=== PATIENT | male | born 1935 | race Caucasian/White ===

== ENCOUNTER → 2017-02-28 | Emergency (ER) | payer MEDICARE ==
[~2017-02-28] VITALS: Ht 182.9 cm; Wt 83.5 kg
[~2017-02-28] MED LIST: ASPIRIN325 MG PO; BUPROPION XL150 MG PO; BUSPIRONE HCL10 MG PO; CORDARONE200 MG PO; COUMADIN5 MG PO; COUMADIN7.5 MG PO; DILTIAZEM ER180 M2 PO; DILTIAZEM ER240 MG PO; I-CAPS WITH LU1 EACH PO; LEVAQUIN500 MG PO; LEVOTHYROXINE50 MCG PO; LISINOPRIL10 MG PO; LOVENOX80 MG SUB-Q; NITROSTAT0.4 MG SL; OMEPRAZOLE20 MG PO; OXYCODON-ACETA1 EAC2 PO; PRAVASTATIN SOD40 MG PO; RITALIN20 MG PO; RITALIN5 MG PO; TAMSULOSIN HCL0.4 MG PO; TRAZODONE HCL100 MG PO; VITAMIN D1000 UNIT PO; VITAMIN D5000 UNIT PO; WARFARIN SODIUM4 MG PO; WARFARIN SODIUM5 MG PO; ZOFRAN ODT4 MG PO
--- NOTE | 2017-02-28 22:05 | EKG ---
[facility] [address] [facility] [place] [address] Signed Sinus rhythm with premature supraventricular complexes Abnormal QRS-T angle, consider primary T wave abnormality Abnormal ECG When compared with ECG of 01-APR-2016 06:46, premature supraventricular complexes are now present Confirmed by JAMES BYERS MD ([id number]) on 02/28/2017 10:05:39 PM Electronically Signed By: JAMES BYERS MD 02/28/17 2205 PATIENT NAME: HAL DOCKERY Electrocardiogram DATE OF : 31 PHYSICIAN: JAMES BYERS MD REPORT #: [id number] REPORT IS CONFIDENTIAL AND NOT TO BE RELEASED WITHOUT AUTHORIZATION
== END ==
LOC: ED 10:57
DX: E86.0 Dehydration (principal); I10 Essential (primary) hypertension; Z87.891 Personal history of nicotine dependence; Z79.899 Other long term (current) drug therapy; Z79.01 Long term (current) use of anticoagulants
CPT/HCPCS: 80053; 84484; 85025; 85610; 93005; 93010; 99284

== ENCOUNTER 2017-09-24 10:43 | Day surgery (SDC) | payer MEDICARE ==
[~2017-09-24] VITALS: Ht 182.9 cm; Wt 81.4 kg
--- NOTE | 2017-09-24 12:55 | NUR ---
09/24/17 1255 Aubrie Donahue 1249 - PT ARRIVED TO PACU. MAINTAINING OWN AIRWAY. RESPONDS TO TOUCH.
[2017-09-29] MEDS ORDERED: LOVENOX40 MG/0.4 SUB-Q (08:36)
--- NOTE | 2017-10-15 09:26 | OR ---
[facility] [address] [place], [place] [address] Signed DATE OF OPERATION: 09/24/2017 SURGEON: Sathya Funes MD PREOPERATIVE DIAGNOSES: 1. "Thickening" of duodenum and antrum. 2. Multiple metastatic lesions of liver. POSTOPERATIVE DIAGNOSIS: No obvious lesion of stomach, duodenum, or esophagus. PROCEDURE: Esophagogastroduodenoscopy with biopsy. ANESTHESIA: Intravenous sedation, fentanyl 100 mcg, Versed 3 mg. INDICATION: This 81-year-old white man is a patient of Dr. Melodie Levi and referred with "thickening" of duodenum noted on CT scan. He had the same thing in 2015 for which upper endoscopy was performed showing no sign of abnormality. 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 He underwent radiation therapy for that. He is admitted at this time to undergo upper endoscopy. A CT scan has shown not only thickening of the duodenum and antrum of the stomach, but also multiple metastatic lesions to the liver. He understands the risks of bleeding, infection, and perforation related to upper endoscopy and wished to proceed. FINDINGS: There is no lesion of the stomach or duodenum to account for metastatic lesion of the liver. Biopsies were taken nevertheless. DESCRIPTION OF PROCEDURE: The patient was brought to the endoscopy suite and placed in lateral decubitus position, given intravenous sedation to the point of slurred speech and nystagmus. He had undergone topical Hurricaine spray hypopharyngeal anesthesia. The Olympus video upper endoscope was passed in the hypopharynx. The vocal cords appeared normal grossly as did the hypopharynx. The scope was advanced into the esophagus without problem throughout its length and it was normal. The scope was passed in the stomach, which was insufflated with air. Rugal folds appeared normal. There was no particular thickening of the stomach or antrum that could be seen. The pylorus was normal. Scope was passed Electronically Signed By: SATHYA FUNES MD 10/15/17 0926 PATIENT NAME: HAL DOCKERY OPERATIVE REPORT DATE OF : 31 REPORT #: [id number] PHYSICIAN: SATHYA FUNES MD PCP: MELODIE LEVI MD REPORT IS CONFIDENTIAL AND NOT TO BE RELEASED WITHOUT AUTHORIZATION [facility] [address] [place], [place] [address] Signed through into the duodenum, which was normal. Biopsies were taken nevertheless. The scope was then withdrawn. A biopsy was then taken of the antrum for both JOVANI and pathologic testing. One area of deep biopsies in the antrum, which was taken to assess for submucosal lymphoma did show some oozing for which hemoclips were applied. Retroflexed view of the GE junction showed a reasonably intact flap valve. The scope was withdrawn to the distal esophagus and normal mucosa of these esophageal mucosa was noted. Carefully, the scope was withdrawn and removed. The patient was taken to the recovery room in good condition. CONCLUDING DIAGNOSIS: No evidence of lesion to account for metastatic lesions to the liver. Consideration might be made for laparoscopic liver biopsy as well as consideration for colonoscopy, as it has been since 2007 that he last had colonoscopy and he was at that time noted to have polyps. Sathya Funes MD JM/MODL /[id number] cc: Melodie Levi MD Copies: MELODIE LEVI MD ~ Electronically Signed By: SATHYA FUNES MD 10/15/17 0926 PATIENT NAME: HAL DOCKERY OPERATIVE REPORT DATE OF : 31 REPORT #: [id number] PHYSICIAN: SATHYA FUNES MD PCP: MELODIE LEVI MD REPORT IS CONFIDENTIAL AND NOT TO BE RELEASED WITHOUT AUTHORIZATION
== END 2017-09-24 13:50 | disposition home or self-care (01) ==
LOC: DS 10:43 → OPS 10:43 → DS 12:00 → OPS 12:00
PROVIDERS: Surgery
PROC: 0DB68ZX Excision of Stomach, Via Natural or Artificial Opening Endoscopic, Diagnostic (ICD-10-PCS; 2017-09-24)
PROC: 0DB77ZX Excision of Stomach, Pylorus, Via Natural or Artificial Opening, Diagnostic (ICD-10-PCS; 2017-09-24)
PROC: 0DB98ZX Excision of Duodenum, Via Natural or Artificial Opening Endoscopic, Diagnostic (ICD-10-PCS; principal; 2017-09-24 12:00)
DX: R93.3 Abnormal findings on diagnostic imaging of other parts of digestive tract (principal); C78.7 Secondary malignant neoplasm of liver and intrahepatic bile duct; I48.2 Chronic atrial fibrillation; I25.10 Atherosclerotic heart disease of native coronary artery without angina pectoris; I10 Essential (primary) hypertension; E78.5 Hyperlipidemia, unspecified; Z87.891 Personal history of nicotine dependence; Z85.810 Personal history of malignant neoplasm of tongue; Z79.01 Long term (current) use of anticoagulants; Z79.899 Other long term (current) drug therapy
CPT/HCPCS: 88305; 99153; G0500; J0290; J1580; J2250; J3010; J7120

== ENCOUNTER 2017-09-25 11:44 | Day surgery (SDC) | payer MEDICARE ==
[~2017-09-25] VITALS: Ht 182.9 cm; Wt 77.1 kg
--- NOTE | 2017-09-25 15:03 | NUR ---
09/25/17 1503 Kellie Francis 6925 PATIENT ARRIVES TO PACU SLEEPING, RESPONDS TO VERBAL STIMULI BUT EYES ARE STILL CLOSED. PATIENT DENIES PAIN OR NAUSEA. RESP EVEN AND UNLBORED, NC AT 3 LITERS.
[2017-09-29] MEDS ORDERED: LOVENOX40 MG/0.4 SUB-Q (08:36)
--- NOTE | 2017-10-01 14:12 | OR ---
[facility] [address] [place], [place] [address] Signed DATE OF OPERATION: 09/25/2017 SURGEON: Sathya Funes MD PREOPERATIVE DIAGNOSIS: Multiple hepatic metastatic lesions, normal upper endoscopy. POSTOPERATIVE DIAGNOSIS: Three polyps of the colon. No evidence of neoplasm proper. PROCEDURE: Total colonoscopy to cecum with cold morcellation polypectomy x3. ANESTHESIA: Intravenous sedation, fentanyl 150 mcg, Versed 5 mg. INDICATIONS: This 81-year-old white man is a patient of Dr. Levi. He has undergone laparoscopic cholecystectomy in 2016. He has other medical problems including atrial fibrillation. He was previously seen on CT scan to have 2 cysts of the liver as well as thickening of the duodenum and antrum of the stomach. This occurred in 2016. Upper endoscopy did not confirm abnormalities there. He did undergo a laparoscopic cholecystectomy. The liver was normal at that time. He had 2 large hepatic cysts. Recently, he has had symptoms of fatigue, but no hematemesis or blood per rectum. CT scan was once again performed showing multiple lesions of the liver, highly suggestive of metastatic disease. Thickening of the duodenum and antrum was noted once again. Upper endoscopy was performed by me yesterday showing no evidence of mucosal lesion, though the wall of the antrum did seem somewhat thickened. Biopsies were obtained. As it has been since 2007 that he had colonoscopy and given the uncertainty of the source of the lesions to the liver, I had recommended colonoscopy be performed. He underwent bowel prep last night following his upper endoscopy and is here today for colonoscopy to assess for neoplasm of the colon itself, possibly accounting for metastatic lesions to the liver. He understands the risks of colonoscopy including, but not limited to, bleeding, infection, and perforation and wished to proceed. FINDINGS: The prep was quite good. Complete colonoscopy was undertaken to the cecum. There were 3 polyps, but no signs of malignancy. All the polyps were excised. Electronically Signed By: SATHYA FUNES MD 10/01/17 1412 PATIENT NAME: HAL DOCKERY OPERATIVE REPORT DATE OF : 31 REPORT #: [id number] PHYSICIAN: SATHYA FUNES MD PCP: MELODIE LEVI MD REPORT IS CONFIDENTIAL AND NOT TO BE RELEASED WITHOUT AUTHORIZATION [facility] [address] [place], [place] [address] Signed DESCRIPTION OF PROCEDURE: The patient was brought to the endoscopy suite and placed in lateral decubitus position, given intravenous sedation to the point of slurred speech and nystagmus. Digital rectal examination was normal. The Olympus video colonoscope was passed into the rectum and manipulated throughout the colon. Areas of prior polypectomy with endoscopic tattoo dye were noted. There was no evidence of polyps in those areas. This was on the left side. The scope was ultimately advanced to the cecum. Ileocecal valve and appendiceal orifice were normal, and scope was withdrawn from that point. Polyp was noted in the cecum, which was excised with cold morcellation technique. Further withdrawal of the scope identified 2 other similar such polyps in the left colon and the rectosigmoid. They were excised. The rectum itself was normal. Scope was removed. ASSESSMENT: There is no sign of colon cancer to account for metastatic lesions. Since the upper endoscopy showed no evidence of endomucosal lesion, colonoscopy was normal and chest x-ray thus far has been considered normal. I would recommend laparoscopy and biopsy of one of the liver lesions for diagnosis. Though a metastatic adenocarcinoma is the most likely thing, the possibility of lymphoma or other more favorable tumor is possible as well. We will make arrangements to do that in the coming week. MD DESIRE Stone/ALEXL /[id number] cc: Melodie Levi MD Copies: MELODIE LEVI MD ~ Electronically Signed By: SATHYA FUNES MD 10/01/17 1412 PATIENT NAME: HAL DOCKERY OPERATIVE REPORT DATE OF : 31 REPORT #: [id number] PHYSICIAN: SATHYA FUNES MD PCP: MELODIE LEVI MD REPORT IS CONFIDENTIAL AND NOT TO BE RELEASED WITHOUT AUTHORIZATION
== END 2017-09-25 15:40 | disposition home or self-care (01) ==
LOC: DS 11:44 → OPS 11:44 → DS 13:30 → OPS 15:40
PROVIDERS: Surgery
PROC: 0DBF8ZZ Excision of Right Large Intestine, Via Natural or Artificial Opening Endoscopic (ICD-10-PCS; 2017-09-25)
PROC: 0DBH8ZZ Excision of Cecum, Via Natural or Artificial Opening Endoscopic (ICD-10-PCS; principal; 2017-09-25 13:30)
DX: D12.0 Benign neoplasm of cecum (principal); D12.2 Benign neoplasm of ascending colon; C78.7 Secondary malignant neoplasm of liver and intrahepatic bile duct; R63.0 Anorexia; K31.9 Disease of stomach and duodenum, unspecified; I48.2 Chronic atrial fibrillation; I25.10 Atherosclerotic heart disease of native coronary artery without angina pectoris; E78.5 Hyperlipidemia, unspecified; I10 Essential (primary) hypertension; Z95.2 Presence of prosthetic heart valve; Z87.891 Personal history of nicotine dependence; Z90.49 Acquired absence of other specified parts of digestive tract; Z95.1 Presence of aortocoronary bypass graft; Z98.890 Other specified postprocedural states; Z85.810 Personal history of malignant neoplasm of tongue
CPT/HCPCS: 88305; 99153; G0500; J0290; J1580; J2250; J3010; J7120